=== PATIENT | female | born 1980 | race Caucasian/White ===

== ENCOUNTER → 2018-12-16 | Outpatient (CLI) | payer OTHER ==
--- NOTE | 2018-12-16 15:29 | KCIC ---
Bilateral digital screening mammograms with 3-D tomosynthesis: Reason for examination: Routine screening. Comparison is made to previous studies dated 09/07/2016 and 10/06/2014. Bilateral mammograms in CC and oblique projections were obtained with 2-D imaging and 3-D tomosynthesis imaging on a Siemens Inspiration unit and reviewed on the workstation. Interpretation was made with the benefit of CAD. The skin and nipples show no abnormalities. No abnormal axillary lymph nodes are seen. The breast parenchyma is extremely dense. (Breast density: Category D.) There are no dominant masses, suspicious calcifications or architectural distortion. Impression: No evidence of malignancy. Recommend routine screening. Your patient's mammogram demonstrates that she has dense breast tissue (breast density category C or D), which could hide abnormalities, and if she has other risk factors for breast cancer that have been identified, she might benefit from supplemental screening tests that may be suggested by you as her ordering physician. Dense breast tissue, in and of itself, is a relatively common condition. Therefore, this information is not provided to cause undue concern, but rather to raise your awareness and to promote discussion with your patient regarding the presence of other risk factors, in addition to dense breast tissue. Your patient's mammography results will be sent to her. BI-RAD Category 1: Negative. "Our facility is accredited by the [employer] Mammography Program." This patient's information has been entered into a reminder system for the patient to be notified with the results of her examination and a target date for the next mammogram. Electronically signed by: Clarice Serrano MD (12/16/2018 3:26 PM) [id number]
== END | disposition home or self-care (01) ==
LOC: KCIC MAMMO 11:02
DX: Z12.31 Encounter for screening mammogram for malignant neoplasm of breast (principal); Z80.3 Family history of malignant neoplasm of breast
CPT/HCPCS: 77063; 77067

== ENCOUNTER → 2019-10-05 | Outpatient (CLI) | payer OTHER ==
--- NOTE | 2019-10-05 17:37 | KCIC ---
Bilateral digital screening mammograms with 3-D tomosynthesis: Reason for examination: Routine screening. Comparison is made to previous studies dated 12/16/2018 and 09/07/2016. Bilateral mammograms in CC and oblique projections were obtained with 2-D imaging and 3-D tomosynthesis imaging on a Siemens Inspiration unit and reviewed on the workstation. Interpretation was made with the benefit of CAD. The skin and nipples show no abnormalities. No abnormal axillary lymph nodes are seen. The breast parenchyma is extremely dense. (Breast density: Category D.) There appears to be a nodular density posterior and slightly lateral to the nipple line in the left breast on cc view. This may be in the 5:00 C position. Further evaluation with ultrasound is recommended. There are no other dominant masses, suspicious calcifications or architectural distortion. Benign calcifications are present. Impression: Small nodular parenchymal density seen in the left breast on cc view possibly at the 5:00 C position. Recommend further evaluation with ultrasound. Your patient's mammogram demonstrates that she has dense breast tissue (breast density category C or D), which could hide abnormalities, and if she has other risk factors for breast cancer that have been identified, she might benefit from supplemental screening tests that may be suggested by you as her ordering physician. Dense breast tissue, in and of itself, is a relatively common condition. Therefore, this information is not provided to cause undue concern, but rather to raise your awareness and to promote discussion with your patient regarding the presence of other risk factors, in addition to dense breast tissue. Your patient's mammography results will be sent to her. BI-RAD Category 0: Incomplete. Needs additional imaging evaluation. "Our facility is accredited by the [employer] Mammography [employer]." This patient's information has been entered into a reminder system for the patient to be notified with the results of her examination and a target date for the next mammogram. Electronically signed by: Clarice Serrano MD (10/05/2019 5:34 PM) [id number]
== END | disposition home or self-care (01) ==
LOC: KCIC MAMMO 14:28
PROVIDERS: ATTEND Obstetrics & Gynecology
DX: Z12.31 Encounter for screening mammogram for malignant neoplasm of breast (principal); N63.23 Unspecified lump in the left breast, lower outer quadrant; N64.89 Other specified disorders of breast
CPT/HCPCS: 77063; 77067

== ENCOUNTER → 2019-10-09 | Outpatient (CLI) | payer OTHER ==
--- NOTE | 2019-10-09 09:14 | KCIC ---
Left breast ultrasound: Reason for examination: Nodular density on screening mammogram. Dense breast parenchyma. Comparison is made to mammographic exam dated 10/05/2019. Left whole breast ultrasound including evaluation of all 4 quadrants and the retroareolar and axillary regions of the left breast was performed. At the 1:00 position 5 cm from the nipple, there is a small hypoechoic 4.1 mm circumscribed lesion with some mild posterior acoustic enhancement which probably represents a small complicated cyst. In the 2:00 position 2 cm from the nipple, there is a small hypoechoic circumscribed lesion measuring 5.8 mm in greatest dimension consistent with a complicated cyst. At the 3:00 position 6 cm from the nipple, there is a 5.4 mm hypoechoic circumscribed lesion in parallel orientation with some posterior acoustic enhancement which may represent a complicated cyst or small fibroadenoma. In the 10:00 position 4 cm from the nipple, there is a 1.6 cm hypoechoic fibrocystic lesion. In the retroareolar 12:00 position, there is some cystic ductal ectasia. No suspicious lesions are seen. No abnormal appearing lymph nodes are seen in the axilla. IMPRESSION: Cystic ductal ectasia in the retroareolar 12:00 position. 1.6 cm fibrocystic lesion at the 10:00 position. Small hypoechoic nodules probably representing complicated cysts in the 1:00, 2:00 and 3:00 positions. Recommend reevaluation in 6 months with ultrasound. BI-RADS Category 3: Probably Benign. "Our facility is accredited by the [employer] Mammography Program." This patient's information has been entered into a reminder system for the patient to be notified with the results of her examination and a target date for the next mammogram. Electronically signed by: Clarice Serrano MD (10/09/2019 9:11 AM) [id number]
== END | disposition home or self-care (01) ==
LOC: KCIC US 08:02
PROVIDERS: ATTEND Nurse Practitioner Women's Health
DX: N60.42 Mammary duct ectasia of left breast (principal); N64.89 Other specified disorders of breast
CPT/HCPCS: 76641

== ENCOUNTER → 2020-04-05 | Outpatient (CLI) | payer OTHER ==
--- NOTE | 2020-04-05 11:03 | KCIC ---
Left breast ultrasound: Reason for examination: Follow-up nodules. Comparison is made to previous study dated 10/09/2019. Left whole breast ultrasound including evaluation of all 4 quadrants and the retroareolar and axillary regions of the left breast was performed. There is some ductal ectasia in the retroareolar 12:00 position. At the 1:00 position 5 cm from the nipple, there continues to be a hypoechoic circumscribed lesion measuring 4.1 mm in greatest dimension which is stable. At the 2:00 position 2 cm from the nipple, there is a 6.3 mm cyst. At the 3:00 position 6 cm from the nipple, there is a 4.6 mm hypoechoic fibrocystic type lesion which shows a slight decrease in size. The fibrocystic lesion at the 10:00 position 4 cm from the nipple has improved now measuring 6.9 mm in greatest dimension. No suspicious-appearing nodules are seen. No abnormal appearing lymph nodes are seen in the axilla. IMPRESSION: Continued presence of benign-appearing cystic and fibrocystic changes with interval improvement. Recommend routine mammographic follow-up. BI-RADS Category 2: Benign. "Our facility is accredited by the [employer] Mammography [employer]." This patient's information has been entered into a reminder system for the patient to be notified with the results of her examination and a target date for the next mammogram. Electronically signed by: Clarice Serrano MD (04/05/2020 11:00 AM) [email or web address]
== END ==
LOC: KCIC US 09:59
PROVIDERS: ATTEND Nurse Practitioner Women's Health
DX: N60.12 Diffuse cystic mastopathy of left breast (principal)
CPT/HCPCS: 76641

== ENCOUNTER → 2020-11-11 | Outpatient (CLI) | payer OTHER ==
--- NOTE | 2020-11-11 18:26 | KCIC ---
BILATERAL SCREENING MAMMOGRAM, 3-D History: Routine screening. Comparison: Bilateral mammogram October 05, 2019. Technique: MLO and CC digital tomosynthesis (3D) images obtained. Radiologist reviewed these images on dedicated workstation. Findings: Breast Tissue Density D :The breasts are extremely dense, which lowers the sensitivity of mammography . Stable benign calcifications of the inner posterior left breast. There is a 6 mm mass anterior retroa reolar of the right breast on CC slice 40. Possible correlate is seen on MLO slice 28. There are no suspicious microcalcifications or architectural distortion. IMPRESSION: Small mass in the anterior retroareolar right breast. Recommend further evaluation with ultrasound. BI-RADS Category 0: Incomplete: Need additional imaging evaluation. The images were reviewed with computer-aided detection. Patient information is entered into reminder system with a target due date for the next screening mook mogram. Mammography is the most sensitive method for finding small breast cancers, but it does not detect the m all and is not a substitute for careful clinical examination. A negative mammogram does not negate a clinically suspicious finding and should not result in delay in biopsying a clinically suspicious a bnormality. "Our facility is accredited by the [employer] Mammography Program." Electronically signed by: Elier Cade MD (11/11/2020 6:23 PM) [email or web address]
== END ==
LOC: KCIC MAMMO 12:19
PROVIDERS: ATTEND Family Medicine
DX: Z12.31 Encounter for screening mammogram for malignant neoplasm of breast (principal)
CPT/HCPCS: 77063; 77067

== ENCOUNTER → 2020-11-22 | Outpatient (CLI) | payer OTHER ==
--- NOTE | 2020-11-22 16:33 | KCIC ---
Right breast ultrasound: Reason for examination: Small nodular density on screening mammogram. Comparison is made to mammographic exam dated 11/11/2020. Ultrasound examination was performed in the area of mammographic concern and at the axilla. There is ductal ectasia in the retroareolar position. At the 9:00 retroareolar position, there is a 4 .3 x 3.9 mm hypoechoic circumscribed lesion with some mild posterior acoustic enhancement and no vasc ular flow. This likely represents a complicated cyst. No other cystic or solid lesions are seen. No a bnormal appearing lymph nodes are seen in the right axilla. IMPRESSION: Small 4.3 mm circumscribed nodule in the retroareolar 9:00 position probably corresponds to the area of mammographic concern and likely represents a complicated cyst. Recommend follow-up ultrasound in 6 months. BI-RADS Category 3: Probably Benign. "Our facility is accredited by the [employer] Mammography Program." This patient's information has been entered into a reminder system for the patient to be notified wit h the results of her examination and a target date for the next mammogram. Electronically signed by: Clarice Serrano MD (11/22/2020 4:30 PM) [email or web address]
== END ==
LOC: KCIC US 13:00
PROVIDERS: ATTEND Obstetrics & Gynecology
DX: R92.8 Other abnormal and inconclusive findings on diagnostic imaging of breast (principal); N63.13 Unspecified lump in the right breast, lower outer quadrant
CPT/HCPCS: 76641

== ENCOUNTER → 2021-05-25 | Outpatient (CLI) | payer OTHER ==
--- NOTE | 2021-05-25 15:03 | KCIC ---
Procedure: Targeted right breast ultrasound INDICATION: Follow-up of the probably benign mass in the 9:00 retroareolar region of the right breast . FINDINGS: The area previously noted mass in the right breast was imaged. The right axilla was evaluat ed. In the 9:00 retroareolar region there is a small oval hypoechoic circumscribed and measures 4 mm in d iameter. This has a small peripheral. Fluid density which may represent a cystic component. It has no t changed previous exam. No axillary adenopathy is seen. IMPRESSION: No change in the 4 mm probably benign mass in the right retroareolar/9:00 position November 2020. A follow-up targeted right breast ultrasound in 6 months is recommended. This can be performed the same time as the patient's annual mammogram. ASSESSMENT: BI-RADS 3. Probably benign findings. Short interval follow-up is recommended. Recommendations: Targeted right breast ultrasound in 6 months. Electronically signed by: Randa Ponce MD (05/25/2021 3:01 PM) [email or web address]
== END ==
LOC: KCIC US 14:08
PROVIDERS: ATTEND Obstetrics & Gynecology
DX: N63.10 Unspecified lump in the right breast, unspecified quadrant (principal); R92.2 Inconclusive mammogram
CPT/HCPCS: 76641

== ENCOUNTER → 2021-11-22 | Outpatient (CLI) | payer OTHER ==
--- NOTE | 2021-11-22 09:54 | KCIC ---
Bilateral diagnostic digital mammograms with 3-D tomosynthesis: Reason for examination: Follow-up right breast nodule. Lateral left breast pain. Comparison is made to previous studies dated back to 10/06/2014. Bilateral mammograms in CC and oblique projections were obtained with 2-D imaging and 3-D tomosynthes is imaging on a Siemens Inspiration unit and reviewed on the workstation. Interpretation was made wit h the benefit of CAD. The skin and nipples show no abnormalities. No abnormal axillary lymph nodes are seen. The breast par enchyma is extremely dense. (Breast density: Category D.) There continues to be a small 5 mm circumsc ribed nodule in the retroareolar 9:00 position of the right breast which is stable. There also appear s to be a 5 mm circumscribed nodule in the retroareolar position of the right breast located approxim ately 4 6.5 cm deep to the nipple. In the left breast posteriorly at approximately the 3:00 position, there is a small 7 mm circumscribed nodule located 6 cm deep to the nipple. There are no other new d ominant masses, suspicious calcifications or architectural distortion. Impression: Small circumscribed nodules bilaterally. Ultrasound to follow. Your patient's mammogram demonstrates that she has dense breast tissue (breast density category C or D), which could hide abnormalities, and if she has other risk factors for breast cancer that have bee n identified, she might benefit from supplemental screening tests that may be suggested by you as her ordering physician. Dense breast tissue, in and of itself, is a relatively common condition. Therefo re, this information is not provided to cause undue concern, but rather to raise your awareness and t o promote discussion with your patient regarding the presence of other risk factors, in addition to d ense breast tissue. Your patient's mammography results will be sent to her. BI-RAD Category 0: Incomplete. Needs additional imaging evaluation. Bilateral breast ultrasound: Comparison is made to previous right breast studies dated 05/25/2021 11/22/2020 and previous left breast exams dated 04/05/2020 and 10/09/2019.. Ultrasound examination was performed bilaterally of the breasts and axilla. In the right breast at the retroareolar 9:00 position, there continues to be a 4.1 mm hypoechoic circ umscribed lesion which is stable. There appears to be some cystic ductal ectasia in the retroareolar 1:00 position. No abnormal appearing lymph nodes are seen in the right axilla. In the left breast, there is a 8.3 mm septated cystic lesion at the 1:00 position 5 cm from the nippl e. There is also a 8.9 mm hypoechoic circumscribed lesion in parallel orientation with some posterior acoustic enhancement at the 3:00 position 6.5 cm from the nipple. This probably represents a deep cy st or small fibroadenoma. There is ductal ectasia in the retroareolar 6:00 position. No abnormal appe aring lymph nodes are seen in the left axilla. IMPRESSION: Stable nodule in the retroareolar 9:00 position of the right breast. Cystic ductal ectasia in the ret roareolar 1:00 position of the right breast. Septated cystic 8.3 mm lesion at the 1:00 position of the left breast. Hypoechoic 8.9 mm circumscribe d nodule possibly a deep cyst or fibroadenoma in the 3:00 position 6.5 cm from the nipple. Recommend 6 month follow-up with left breast ultrasound. BI-RADS Category 3: Probably Benign. "Our facility is accredited by the [employer] Mammography Program." This patient's information has been entered into a reminder system for the patient to be notified wit h the results of her examination and a target date for the next mammogram. Electronically signed by: Clarice Serrano MD (11/22/2021 9:51 AM) [email or web address]
== END ==
LOC: KCIC MAMMO 07:54
DX: N63.14 Unspecified lump in the right breast, lower inner quadrant (principal); N60.41 Mammary duct ectasia of right breast; N64.89 Other specified disorders of breast; N63.23 Unspecified lump in the left breast, lower outer quadrant
CPT/HCPCS: 76641; 77066; G0279; 77062